=== PATIENT | female | born 1955 | race Caucasian/White ===

== ENCOUNTER → 2016-05-24 | Outpatient (CLI) | payer BC | LOC: MC.RAD 05-21 14:40 | DX: Z12.31 Encounter for screening mammogram for malignant neoplasm of breast (principal); Z85.3 Personal history of malignant neoplasm of breast ==

== ENCOUNTER → 2017-06-13 | Outpatient (CLI) | payer BC | LOC: MC.RAD 06-06 08:20 | DX: Z12.31 Encounter for screening mammogram for malignant neoplasm of breast (principal) ==

== ENCOUNTER → 2018-07-31 | Outpatient (CLI) | payer BC | LOC: MC.RAD 13:24 | DX: Z12.31 Encounter for screening mammogram for malignant neoplasm of breast (principal) ==

== ENCOUNTER → 2019-10-11 | Outpatient (CLI) | payer BC | LOC: MC.RAD 14:50 | DX: Z12.31 Encounter for screening mammogram for malignant neoplasm of breast (principal) ==

== ENCOUNTER → 2021-01-30 | Outpatient (CLI) | payer BC | LOC: MC.RAD 07:58 | DX: Z12.31 Encounter for screening mammogram for malignant neoplasm of breast (principal) ==

== ENCOUNTER → 2022-05-14 | Outpatient (CLI) | payer MEDICARE, BC | LOC: MC.RAD 03-05 10:45 | DX: Z12.31 Encounter for screening mammogram for malignant neoplasm of breast (principal) ==

== ENCOUNTER → 2023-05-16 | Outpatient (CLI) | payer MEDICARE, BC ==
[~2023-05-16] MED LIST: BONINE25 MG PO
== END ==
LOC: MC.RAD 13:51
DX: Z12.31 Encounter for screening mammogram for malignant neoplasm of breast (principal)